=== PATIENT | female | born 2000 | race Caucasian/White ===

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

== ENCOUNTER 2019-03-21 09:48 | Emergency (ER) | payer OTHER ==
[~2019-03-21] VITALS: Ht 157.5 cm; Wt 104.5 kg
[~2019-03-21 09:48] MED LIST changes: +IBUP-1542 PO
[2019-03-21 10:11] VITALS: BP 133/63; PULSE 93; RESP 20; Ht 157.5 cm; Wt 104.5 kg
[2019-03-21] MEDS ORDERED: KETOROLAC 30 MG INJ IM STA (10:49)
== END 2019-03-21 12:49 | disposition home or self-care (01) ==
LOC: FTE 09:48
DX: N83.202 Unspecified ovarian cyst, left side (principal)
CPT/HCPCS: 76830; 76856; 81003; 81025; 96372; J1885; Z7502